=== PATIENT | female | born 1950 | race Caucasian/White ===

== ENCOUNTER → 2017-06-07 | Outpatient (CLI) | payer MEDICARE, OTHER | END | disposition home or self-care (01) | LOC: RAH 14:58 | PROVIDERS: ATTEND Physical Medicine & Rehabilitation | DX: M47.896 Other spondylosis, lumbar region (principal); I10 Essential (primary) hypertension | CPT/HCPCS: 72100 ==

== ENCOUNTER → 2018-07-18 | Outpatient (CLI) | payer MEDICARE, OTHER | END | disposition home or self-care (01) | LOC: RAH 11:34 | PROVIDERS: ATTEND Physical Medicine & Rehabilitation | DX: M47.26 Other spondylosis with radiculopathy, lumbar region (principal); M85.88 Other specified disorders of bone density and structure, other site | CPT/HCPCS: 72114 ==

== ENCOUNTER 2019-03-17 07:53 | Emergency (ER) | payer MEDICARE, OTHER ==
[2019-03-17] MEDS ORDERED: ONDANSETRON HCL 4 MG/2 ML VIAL ONE (08:35)
[2019-03-17] MEDS ORDERED: SODIUM CHLORIDE 0.9% 1000ML 1,000 ML IV ONE (08:36)
[2019-03-17] MEDS ORDERED: MORPHINE SULFATE 2 MG/ML 1ML SYG ONE (08:36)
[2019-03-17 09:22] LABS: BASOPHILS % (AUTO) 0.1 % (0.0-5.0); EOSINOPHILS % (AUTO) 0.1 % (0.0-8.0); HEMATOCRIT 36.4 % (36-48); LYMPHOCYTES % (AUTO) 13.1 % (21.0-51.0); MEAN CORPUSCULAR HEMOGLOBIN 25.7 pg (27.0-33.0); MEAN CORPUSCULAR HGB CONC 30.8 g/dL (32.0-36.0); MEAN CORPUSCULAR VOLUME 83.5 fL (79-99); MONOCYTES % (AUTO) 6.6 % (3.0-13.0); NEUTROPHILS % (AUTO) 79.8 % (40.0-77.0); PLATELET COUNT (AUTO) 367 K/uL (130-400); RED BLOOD CELL COUNT(AUTO) 4.36 MIL/uL (4.00-5.50); RED CELL DISTRIBUTION WIDTH 15.9 % (11.0-15.5); WHITE BLOOD COUNT (AUTO) 10.2 K/uL (4.8-10.8)
[2019-03-17 09:37] LABS: INR 0.95 (0.85-1.15); PARTIAL THROMBOPLASTIN TIME 23.4 SEC (26.3-35.5)
[2019-03-17 09:43] LABS: POTASSIUM 3.8 mmol/L (3.5-5.1)
[2019-03-17 09:48] LABS: ALBUMIN 3.3 g/dL (3.5-5.0); BILIRUBIN,DIRECT 0.1 mg/dL (0.0-0.3); BILIRUBIN,TOTAL 0.4 mg/dL (0.2-1.0); TOTAL PROTEIN, SERUM 6.1 g/dL (6.0-8.3)
[2019-03-17 09:51] LABS: APPEARANCE,URINE Clear (CLEAR); BILIRUBIN,URINE Negative (NEGATIVE); COLOR,URINE Yellow (YELLOW); GLUCOSE, URINE (UA) Negative (NEGATIVE); KETONES,URINE Negative (NEGATIVE); LEUKOCYTE ESTERASE ,URINE Small (NEGATIVE); NITRATE,URINE Negative (NEGATIVE); OCCULT BLOOD,URINE Negative (NEGATIVE); PROTEIN,URINE Negative (NEGATIVE); UROBILINOGEN,URINE 0.2 mg/dL (0.2-1.0)
[2019-03-17 10:05] LABS: BACTERIA,URINE Rare /HPF (None Seen); RBC,URINE 0-1 /HPF (0-1); SQUAMOUS EPITHELIAL CELL,UR Rare /HPF (0-2)
[2019-03-17] MEDS ORDERED: ACETAMINOPHEN 325 MG TAB ONE (11:05)
== END 2019-03-17 13:12 | disposition home or self-care (01) ==
LOC: EDH 07:53
DX: A05.9 Bacterial foodborne intoxication, unspecified (principal); E86.0 Dehydration; R53.1 Weakness; N28.1 Cyst of kidney, acquired; I10 Essential (primary) hypertension; M19.90 Unspecified osteoarthritis, unspecified site; Z90.49 Acquired absence of other specified parts of digestive tract
CPT/HCPCS: 36415; 74176; 80048; 80076; 81001; 82550; 83605; 83690; 84484; 85025; 85610; 85730; 87804 ×2; 93005; 96374; 96375; 99285; J2405; J7030

== ENCOUNTER 2019-07-20 11:30 | Emergency (ER) | payer MEDICARE, OTHER ==
[2019-07-20] MEDS ORDERED: ACETAMINOPHEN 325 MG TAB ONE (12:29)
== END 2019-07-20 13:50 | disposition home or self-care (01) ==
LOC: EDH 11:30
DX: M25.461 Effusion, right knee (principal); M25.561 Pain in right knee; G89.29 Other chronic pain; I10 Essential (primary) hypertension; M19.90 Unspecified osteoarthritis, unspecified site; Z88.1 Allergy status to other antibiotic agents
CPT/HCPCS: 73562

== ENCOUNTER 2019-09-02 14:47 | Emergency (ER) | payer MEDICARE, OTHER | END 2019-09-02 15:35 | disposition home or self-care (01) | LOC: EDH 14:47 | DX: L25.9 Unspecified contact dermatitis, unspecified cause (principal); M19.90 Unspecified osteoarthritis, unspecified site; K21.9 Gastro-esophageal reflux disease without esophagitis; I10 Essential (primary) hypertension; Z88.1 Allergy status to other antibiotic agents | CPT/HCPCS: 99281 ==

== ENCOUNTER 2021-11-16 15:31 | Emergency (ER) | payer MEDICARE, OTHER ==
[~2021-11-16] VITALS: Ht 162.6 cm; Wt 72.1 kg
[2021-11-16] MEDS ORDERED: ACETAMINOPHEN 500 MG TABLET PO ONE (17:00)
[2021-11-16] MEDS ORDERED: AMOX/CLAV 875/125MG TAB PO ONE (17:00)
[2021-11-16] MEDS ORDERED: TETANUS/DIPHTHERIA TOXOID [ADULT] 0.5 ML VIAL IM ONE (17:00)
[2021-11-16] MEDS ORDERED: AMOX1TAB16 PO (17:01)
[2021-11-16 17:50] VITALS: BP 132/65
== END 2021-11-16 17:52 | disposition home or self-care (01) ==
LOC: EDH 15:31
DX: S51.822A Laceration with foreign body of left forearm, initial encounter (principal); I10 Essential (primary) hypertension; G43.909 Migraine, unspecified, not intractable, without status migrainosus; Z88.8 Allergy status to other drugs, medicaments and biological substances; Z98.890 Other specified postprocedural states; W54.0XXA Bitten by dog, initial encounter; Y93.89 Activity, other specified; Y92.89 Other specified places as the place of occurrence of the external cause; Y99.8 Other external cause status
CPT/HCPCS: 73090; 90471; 90714

== ENCOUNTER → 2022-02-11 | Outpatient (CLI) | payer MEDICARE, OTHER ==
[~2022-02-11] MED LIST: AMOX1TAB16 PO
== END | disposition home or self-care (01) ==
LOC: RAH 10:39
PROVIDERS: ATTEND Anesthesiology Pain Medicine
DX: M47.817 Spondylosis without myelopathy or radiculopathy, lumbosacral region (principal); M43.17 Spondylolisthesis, lumbosacral region; M54.50 Low back pain, unspecified
CPT/HCPCS: 72114; 72220

== ENCOUNTER 2022-06-08 12:43 | Emergency (ER) | payer MEDICARE, OTHER ==
[~2022-06-08] VITALS: Ht 162.6 cm; Wt 68.0 kg
[2022-06-08] MEDS ORDERED: ACETAMINOPHEN 325 MG TAB PO ONE (13:30)
[2022-06-08] MEDS ORDERED: KETOROLAC 30MG VIAL (30MG/ML) IV ONE (13:30)
[2022-06-08] MEDS ORDERED: KETOROLAC 15MG/ML VIAL (15MG/ML) IM ONE (13:30)
[2022-06-08] MEDS ORDERED: IBUP-2070 PO (14:07)
[2022-06-08] MEDS ORDERED: DICL20GE TP (14:07)
[2022-06-08] MEDS ORDERED: BACITRACIN 1 EACH PACKET TP ONE (15:00)
[2022-06-08 15:28] VITALS: BP 127/78
== END 2022-06-08 15:28 | disposition home or self-care (01) ==
LOC: EDH 12:43
DX: S80.02XA Contusion of left knee, initial encounter (principal); S40.012A Contusion of left shoulder, initial encounter; S00.83XA Contusion of other part of head, initial encounter; M54.2 Cervicalgia; I10 Essential (primary) hypertension; Z88.2 Allergy status to sulfonamides; W18.39XA Other fall on same level, initial encounter; Y93.89 Activity, other specified; Y92.89 Other specified places as the place of occurrence of the external cause; Y99.8 Other external cause status
CPT/HCPCS: 99285; 73562; 73030; 70450; 72125; 70486; 96372; J1885